=== PATIENT | female | born 1965 | race Asian ===

== ENCOUNTER 2018-01-31 23:25 | Emergency (ER) | payer OTHER ==
[~2018-01-31] VITALS: Ht 160 cm; Wt 59.0 kg
[2018-01-31 23:46] VITALS: BP 115/66
--- NOTE | 2018-02-01 00:37 | Emergency Room Report ---
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 She is right-hand dominant. She was giving the patient Lovenox shot. She said afterward as he was withdrawing the needle and capping it, she was distracted by another patient and somehow stuck herself in the right thumb. She is right- hand dominant. Patient does not have HIV unknown hepatitis status. Allergies: Coded Allergies: No Known Allergies (Unverified , 01/31/18) Patient History Past Medical History: see triage record, old chart reviewed Past Surgical History: none Pertinent Family History: none Social History: Denies: smoking Last Menstrual Period: none Now: No Immunizations: other Reviewed Nursing Documentation: PMH: Agreed; PSxH: Agreed Nursing Documentation-PMH Past Medical History: No Stated History Review of Systems Eye: Denies: eye pain, blurred vision ENT: Denies: ear pain, nose congestion, throat swelling Respiratory: Denies: cough, shortness of breath Cardiovascular: Denies: chest pain, palpitations Gastrointestinal: Denies: abdominal pain, diarrhea, nausea, vomiting Musculoskeletal: Denies: back pain, joint pain Skin: Denies: rash Neurological: Denies: headache, numbness Endocrine: Denies: increased thirst, increased urine Hematologic/Lymphatic: Denies: easy bruising All Other Systems: negative except mentioned in HPI Physical Exam Vital Signs Date Time Temp Pulse Resp B/P (MAP) Pulse Ox O2 Delivery O2 Flow Rate FiO2 01/31/18 23:37 98.2 66 18 115/66 98 Room Air 98.2 vitals normal Sp02 EP Interpretation: reviewed, normal General Appearance: well appearing, no apparent distress, alert Head: normocephalic, atraumatic Eyes: bilateral eye PERRL, bilateral eye EOMI ENT: hearing grossly normal, normal pharynx Neck: full range of motion, supple, no meningismus Respiratory: chest non-tender, lungs clear, normal breath sounds Cardiovascular #1: regular rate, rhythm, no murmur Gastrointestinal: normal bowel sounds, non tender, no mass, no organomegaly, no bruit, non-distended Musculoskeletal: back normal, gait/station normal, normal range of motion, other - small puncture wound to pad of right thumb Psychiatric: mood/affect normal Skin: warm/dry Medical Decision Making Diagnostic Impression: Primary Impression: Needlestick injury of finger of right hand Qualified Codes: S61.239A - Puncture wound without foreign body of unspecified finger without damage to nail, initial encounter; W27.3XXA - Contact with needle (sewing), initial encounter ER Course Patient with needle stick injury. Low risk. No need for prophylactic at this point. Recommend checking source patient for HIV and hepatitis. Follow-up with occupation/employee health. Last Vital Signs Date Time Temp Pulse Resp B/P (MAP) Pulse Ox O2 Delivery O2 Flow Rate FiO2 01/31/18 23:46 98.2 18 115/66 98 Room Air 98.2 01/31/18 23:37 66 Status: unchanged Disposition: HOME, SELF-CARE Condition: Stable Additional Instructions: Follow-up with employee health in one to 2 days. May call for results. Check source patient for hepatitis and HIV. ROMAINE BEARD M.D. Feb 01, 2018 00:36
[2018-02-01 00:43] VITALS: BP 115/66
== END 2018-02-01 00:45 | disposition home or self-care (01) ==
LOC: EMR 23:51
DX: S61.031A Puncture wound without foreign body of right thumb without damage to nail, initial encounter (principal); W46.0XXA Contact with hypodermic needle, initial encounter; Y93.F9 Activity, other caregiving; Y92.129 Unspecified place in nursing home as the place of occurrence of the external cause; Y99.0 Civilian activity done for income or pay
CPT/HCPCS: 86703; 86706; 86803; 99282